=== PATIENT | female | born 1995 | race American Indian/Alaskan Native ===

== ENCOUNTER 2019-06-01 05:38 | Outpatient (CLI) | payer OTHER ==
[2019-06-01 06:21] VITALS: BP 122/75
== END 2019-06-01 07:23 | disposition home or self-care (01) ==
LOC: TRG 05:38
PROVIDERS: ATTEND Obstetrics & Gynecology
DX: O47.03 False labor before 37 completed weeks of gestation, third trimester (principal); O26.893 Other specified pregnancy related conditions, third trimester; R07.9 Chest pain, unspecified; Z3A.34 34 weeks gestation of pregnancy
CPT/HCPCS: 59025